=== PATIENT | female | born 1970 | race Caucasian/White ===

== ENCOUNTER 2020-07-13 07:54 | Outpatient (CLI) | payer OTHER, SELFPAY | END 2020-07-13 07:55 | disposition home or self-care (01) | LOC: ANHAUDIO 07:58 | PROVIDERS: Visit Provider Nurse Practitioner Family | DX: H90.3 Sensorineural hearing loss, bilateral (principal) | CPT/HCPCS: 92537; 92540; 92546; 92557; 92567 ==